=== PATIENT | male | born 1990 | race Caucasian/White ===

== ENCOUNTER 2025-05-04 09:46 | Observation (INO) | payer BC ==
[2025-05-04 10:33] LABS: #Basophils 0.05 10x3/uL (0.0-0.2); #Eosinophils 0.13 10x3/uL (0.0-0.7); #Monocytes 0.72 10x3/uL (0.11-0.59); #Neutrophils 5.18 10x3/uL (1.40-6.50); %Basophils 0.6 % (0.0-1.0); %Eosinophils 1.6 % (0.0-10.0); %Lymphocytes 25.1 % (21.0-51.0); %Monocytes 8.8 % (0.0-10.0); %Neutrophils 63.7 % (42.0-75.0); Hematocrit 42.5 % (42.0-52.0); Hemoglobin 13.5 g/dL (14.0-18.0); Mean Corpuscular Hemoglobin 26.5 pg (27.0-31.0); Mean Corpuscular Volume 83.3 fL (78.0-98.0); Platelet Count 234 10x3/uL (130-400); Red Blood Cell (RBC) Count 5.10 mill/uL (4.70-6.10); White Blood Cell (WBC) Count 8.14 10x3/uL (4.8-10.8)
[2025-05-04 10:38] LABS: Bacteria/HPF None Seen HPF (None Seen); CAUTI Indications for Culture Pelvic or flank pain; Glucose, Urine (Dipstick) Normal (Negative); Leukocyte Negative Leu/uL (Negative); Protein, Urine (Dipstick) Negative (Neg-Trace); RBC/HPF None Seen HPF (0-3); Specific Gravity, Urine 1.020 (1.002-1.036); WBC/HPF None Seen HPF (0-3)
[2025-05-04 10:42] LABS: Urine Culture Reflex No No
[2025-05-04 10:50] LABS: ALT (SGPT) 25 U/L (Less than 45); AST (SGOT) 27 U/L (11-34); Albumin 4.4 g/dL (3.1-4.5); Alkaline Phosphatase 55 U/L (40-110); Anion Gap 13 mmol/L (10-20); BUN (Urea Nitrogen) 10 mg/dL (8.9-20.6); Bilirubin, Total 0.4 mg/dL (0.3-1.2); Calc. Creatinine Clearance 0 mL/min (70-130); Calcium 9.3 mg/dL (7.8-10.44); Carbon Dioxide 26 mmol/L (22-29); Chloride 104 mmol/L (98-107); Globulin 2.6 g/dL (2.4-3.5); Glucose 96 mg/dL (70-105); Potassium 4.3 mmol/L (3.5-5.1); Sodium 139 mmol/L (136-145)
[2025-05-04] MEDS ORDERED: Ondansetron PF 4 MG/2 ML Vial ONE ×2 (11:01→16:38)
[2025-05-04] MEDS ORDERED: Acetaminophen 325 MG TAB PO PRN (11:40)
[2025-05-04] MEDS ORDERED: Ondansetron PF 4 MG/2 ML Vial IVP PRN (11:40)
[2025-05-04 13:37] VITALS: BMI 25.0
[2025-05-04] MEDS ORDERED: Iopamidol-370 76% 500 ML MDV (1 ML CHARGE) ONE (14:50)
[2025-05-04 15:26] VITALS: BP 133/86; TEMP 98.1
[2025-05-04] MEDS ORDERED: fentaNYL PF 100 MCG/2 ML SYRINGE ONE (16:38)
[2025-05-04] MEDS ORDERED: Lidocaine 1% PF 5 ML VIAL ONE (16:38)
[2025-05-04] MEDS ORDERED: PROPOFOL 40 ML ONE (16:38)
[2025-05-04] MEDS ORDERED: Rocuronium Bromide 10 MG/ML (10ML VIAL) ONE (16:38)
[2025-05-04] MEDS ORDERED: SUGAMMADEX SODIUM 200 MG/2 ML VIAL ONE (16:38)
[2025-05-04] MEDS ORDERED: Bupivacaine 0.25% HCL 30 ML VIAL ONE (16:44)
[2025-05-04] MEDS ORDERED: Ketorolac Tromethamine 30 MG (1 mL) VIAL ONE (17:43)
[2025-05-04] MEDS ORDERED: HYDROmorphone 0.5 MG/0.5 ML SYRINGE ONE (18:20)
== END 2025-05-04 21:40 | disposition home or self-care (01) ==
LOC: ERS 09:46 → SURG B 11:46
PROVIDERS: ADMIT Colon & Rectal Surgery; ATTEND Colon & Rectal Surgery
PROC: 0DTJ4ZZ Resection of Appendix, Percutaneous Endoscopic Approach (ICD-10-PCS; principal; 2025-05-04)
DX: K35.80 Unspecified acute appendicitis (principal); F90.9 Attention-deficit hyperactivity disorder, unspecified type; Z79.899 Other long term (current) drug therapy
CPT/HCPCS: 74177; 80053; 81001; 85025; 88304; 96372; 96374; 96375; A4649; G0378; J0169; J0665; J1100; J1171; J1885; J2405; J2704; J3010; Q9967